=== PATIENT | female | born 1995 ===

== ENCOUNTER 2021-09-08 11:04 | Emergency (ER) | payer SELFPAY ==
[~2021-09-08] VITALS: Ht 165.1 cm; Wt 90.7 kg
[2021-09-08 11:52] LABS: CARBON DIOXIDE 27 mmol/L (21-32); CHLORIDE 102 mmol/L (98-107); CREATININE 0.6 mg/dL (0.6-1.3); GLUCOSE 81 mg/dL (74-106); POTASSIUM 4.3 mmol/L (3.5-5.1); UREA NITROGEN, BLOOD 14 mg/dL (7-18)
[2021-09-08 11:57] LABS: ETHANOL < 3 MG/DL (0-0)
[2021-09-08 11:58] LABS: HEMATOCRIT 35.1 % (31.2-41.9); MEAN CORPUSCULAR HEMOGLOBIN 32.4 uug (24.7-32.8); MEAN CORPUSCULAR VOLUME 93.5 fL (75.5-95.3); PLATELET COUNT (AUTO) 209 K/uL (179-408)
[2021-09-08 12:05] LABS: ALANINE AMINOTRANSFERASE 16 U/L (14-59); ALKALINE PHOSPHATASE 45 U/L (50-136); ASPARTATE AMINOTRANSFERASE 8 U/L (15-37); BILIRUBIN,DIRECT 0.1 mg/dL (0.0-0.2); BILIRUBIN,TOTAL 0.2 mg/dL (0.2-1.0); TOTAL PROTEIN, SERUM 7.1 g/dL (6.4-8.2)
[2021-09-08 12:06] LABS: ACETAMINOPHEN < 2.0 ug/mL (10-30)
--- NOTE | 2021-09-08 12:34 | NUR ---
ANJANA wrote [id number] hold on pt. PD took off handcuffs and pt's same wrist was restrained. Pt became combative when informed that MD wanted 2nd wrist restrained. Pt's 2nd wrist was restrained forceably w/aid of security.
--- NOTE | 2021-09-08 13:10 | NUR ---
Pt ran out of the front door of the emergency department as reported by other ER staff and ER correspondence clerk. I ran out of the front door and saw the patient running on the sidewalk on [facility] [address]. Patient was already crossing [facility]. I came back into the ER, security and a code AWOL was immediately called per hospital policy. Per MarkRN primary nurse pt was in velcro restraints (bilat wrist). I looked at the gurney in room 1A and the restrains were still on the gurney but the velcro (wrist parts) were open. It appeared the pt was able to remove/undue the velcro portion of the wrist restraints. I called [employer] on the non-emergency line ([id number]) and was on hold for approx 20 mins. While I was still on hold, security attendant stated that they have already contacted the [employer]. the ER physician on duty was notified about the incident.
--- NOTE | 2021-09-08 13:20 | NUR ---
Pt requested to use bathroom. 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 [employer] was called to report.
--- NOTE | 2021-09-08 13:52 | NUR ---
Still keeping bandages moist.
== END 2021-09-08 14:13 | disposition left against medical advice (07) ==
LOC: ER 11:04
DX: O99.340 Other mental disorders complicating pregnancy, unspecified trimester (principal); F60.3 Borderline personality disorder; Z78.1 Physical restraint status; F43.10 Post-traumatic stress disorder, unspecified; F15.10 Other stimulant abuse, uncomplicated; O99.320 Drug use complicating pregnancy, unspecified trimester; Z3A.00 Weeks of gestation of pregnancy not specified; Z53.29 Procedure and treatment not carried out because of patient's decision for other reasons
CPT/HCPCS: 36415; 85025; A4663; G0480